=== PATIENT | female | born 1975 | race Two or more races ===

== ENCOUNTER 2019-06-26 07:23 | Day surgery (SDC) | payer OTHER ==
[2019-06-26] MEDS ORDERED: fentaNYL 100 MCG/2 ML VIAL IVP ONE (07:24)
[2019-06-26] MEDS ORDERED: KETOROLAC 30 MG/ML VIAL IVP ONE (07:24)
[2019-06-26] MEDS ORDERED: ONDANSETRON 4 MG/2 ML VIAL IVP ONE (07:24)
[2019-06-26] MEDS ORDERED: DEXAMETHASONE 4 MG/ML VIAL IVP ONE (07:24)
[2019-06-26] MEDS ORDERED: ROCURONIUM 50 MG/5 ML VIAL IVP ONE (07:24)
[2019-06-26] MEDS ORDERED: GLYCOPYRROLATE 1 MG/5 ML VIAL IVP ONE (07:24)
[2019-06-26] MEDS ORDERED: MIDAZOLAM 2 MG/2 ML VIAL IVP ONE (07:24)
[2019-06-26] MEDS ORDERED: PROPOFOL 200 MG/20 ML VIAL IVP ONE (07:24)
[2019-06-26] MEDS ORDERED: LACTATED RINGERS 1,000 ML IV ONE ×2 (07:54→10:15)
--- NOTE | 2019-06-26 08:01 | ANESTHESIA ---
Pre-Anesthesia VS, & Labs - Diagnosis chronic pelvic pain - Procedure diagnostic laparoscopy Vital Signs: Temp Pulse Resp BP Pulse Ox 36.2 C L 71 16 106/75 96 06/26/19 07:39 06/26/19 07:39 06/26/19 07:39 06/26/19 07:39 06/26/19 07:39 Height 5 ft 3.78 in Weight (kg) 77.4 kg - NPO >8 hours Last Fluid Intake: h20 at 0630 - Is Patient ?: Waiver signed Home Medications and Allergies Home Medications: Ambulatory Orders Diclofenac Sodium [Voltaren] 100 gm TP 06/16/19 Ergocalciferol [Vitamin D2] 50,000 unit PO Q7D 06/16/19 Fluticasone [Flonase] 1 sprays [place] DAILY 06/16/19 Loratadine [Claritin] 10 mg PO 06/16/19 Omeprazole 40 mg PO 06/16/19 Zolpidem [Ambien] 5 mg PO HS 06/16/19 Ibuprofen 10/05/14 Diclofenac Sodium [Voltaren] 100 gm TP 06/16/19 Ergocalciferol [Vitamin D2] 50,000 unit PO Q7D 06/16/19 Fluticasone [Flonase] 1 sprays [place]NN DAILY 06/16/19 Loratadine [Claritin] 10 mg PO 06/16/19 Omeprazole 40 mg PO 06/16/19 Zolpidem [Ambien] 5 mg PO HS 06/16/19 Allergies/Adverse Reactions: Allergies Allergy/AdvReac Type Severity Reaction Status Date / Time amoxicillin Allergy Rash Verified 06/16/19 14:23 Anes History & Medical History - Anesthetic History Anesthesia Complications: reports: Post-Operative Nausea/Vomiting - Medical History Cardiovascular: reports: None Pulmonary: reports: None Gastrointestinal: reports: GERD (controlled with medication) Urinary: reports: None Neuro: reports: None Musculoskeletal: reports: None Endocrine/Autoimmune: reports: None Blood Disorders: reports: None Skin: reports: None Smoking Status: Never smoker Psychosocial: reports: No issues indicated - Surgical History General: Cholecystectomy Gynecologic: section, Tubal ligation Exam General: Alert, Oriented x3, Cooperative, No acute distress Dental: WNL Mouth Openin Fingerbreadth Neck Mobility: Normal Mallampati classification: II Thyromental Distance: greater than 6 cm Respiratory: Lungs clear, Normal breath sounds, No respiratory distress, No accessory muscle use Cardiovascular: Regular rate, Normal S1, Normal S2, No murmurs Mental/Cognitive Status: Alert/Oriented X3, Normal for patient Plan Anesthesia Type: General Consent for Procedure(s) Verified and Reviewed: Yes Code Status: Attempt Resuscitation ASA classification: 2-Mild systemic disease Is this case an emergency?: No
[2019-06-26] MEDS ORDERED: SCOPOLAMINE PATCH TOP ONE (08:08)
[2019-06-26] MEDS ORDERED: BUPIVACAINE 0.5% PF 10 ML VIAL ONE (08:29)
[2019-06-26] MEDS ORDERED: SIMETHICONE 40 MG/0.6 ML 30 ML BOTTLE ONE (08:54)
[2019-06-26] MEDS ORDERED: SILVER NITRATE APPLICATOR TOP ONE (08:55)
[2019-06-26] MEDS ORDERED: BUPIVACAINE 0.5% PF 30 ML VIAL SUBQ ONE ×2 (09:35)
[2019-06-26] MEDS ORDERED: HYDROcod/ACETAM 10 MG/325 MG TABLET PO PRN (10:18)
--- NOTE | 2019-06-26 10:22 | OPERATIVE REPORT ---
Operative Report - General Procedure Date: 06/26/19 Planned Procedure: Diagnostic laparoscopy Pre-Op Diagnosis: Chronic pelvic pain Procedure Performed: Diagnostic laparoscopy Lysis of adhesions Fulguration of endometriosis Post Op Diagnosis: Adhesions - Procedure Note Primary Surgeon: Naheed Anesthesia Provider: Jonatan Anesthesia Technique: General ET tube IV Fluids (mL): 1,000 Estimated Blood Loss (mL): 10 Indications: 7-year history of pelvic pain of uncertain etiology Findings: Exam under anesthesia Uterus was of normal size shape and consistency and anteverted. There were no adnexal masses. Operative findings the uterus was anteverted and of normal size and shape. There was a dense adhesive band from the fundus of the uterus to the anterior abdominal wall. There were filmy omental adhesions in the right lower quadrant omentum covered the entire abdomen obscuring abdominal contents and preventing observation of the appendix and liver. There were 3 endometriotic implants in the posterior cul-de-sac. The anterior cul-de-sac and both ovarian fossae were clear. Both tubes and ovaries appeared normal. Complications: None - Other Other Information/Narrative: The patient was taken to the operating room, where general endotracheal anesthesia was administered without difficulty. She was then positioned in the low dorsal lithotomy position with her lower extremities in [place] stirrups. Vagina, perineum, and abdomen were then prepped and draped in a sterile fashion. Procedure Time-Out was then performed. An exam under anesthesia was performed. A sterile bivalve speculum was then inserted into the vagina. The anterior lip of the cervix was grasped with a single-tooth tenaculum, then the cervix was serially dilated until a [place]ka uterine manipulator could be advanced. The speculum was then removed, and attention was turned to the laparoscopy. 0.5% Marcaine was injected infraumbilically, then a 7-mm horizontal skin incision made. A Verres needle was then inserted through the anterior layers of the abdominal wall with saline drop test suggesting intraperitoneal placement. Carbon dioxide gas insufflation was then performed with appropriate opening pressures noted. Once 2 L of gas was instilled, a 0-degree, 5 mm laparoscope was inserted into a 5 mm trocar and passed through the anterior layers of the abdominal wall using Optiview technique. The abdomen was visualized, then a right lower quadrant port was placed, first instilling local anesthetic, then placing the ports under direct visualization with the laparoscope. The patient was placed into Trendelenberg and bowel swept out of the cul-de-sac. The pelvis was visualized with the findings as noted above. The fibrous adhesion from the fundus of the uterus to the anterior abdominal wall was doubly coagulated with the LigaSure and divided. The right lower quadrant adhesions were taken down with the LigaSure. Bovie cautery was utilized to fulgurate the endometriosis lesions. At this point the laparoscopy was deemed complete, and all trocars were removed from the abdomen. The carbon dioxide gas was then allowed to escape. The incisions were then closed with 4-0 Monocryl in a subcuticular fashion followed by Dermabond skin adhesive. The uterine manipulator was removed. At this point the procedure was deemed complete. The patient was then replaced supine, awakened, extubated, and transferred to the PACU in stable condition. There were no complications. Sponge, lap, and needle count were correct x 3. There were no complications.
[2019-06-26] MEDS: fentaNYL 100 MCG/2 ML VIAL ONE ×2 (10:26→10:32)
[2019-06-26] MEDS ORDERED: HYDROcod/ACETAM 10 MG/325 MG TABLET ONE (11:20)
[2019-06-26 11:56] VITALS: BP 121/82
== END 2019-06-26 07:24 | disposition home or self-care (01) ==
LOC: SDS 07:23
PROVIDERS: ATTEND Obstetrics & Gynecology
PROC: 0U5F4ZZ Destruction of Cul-de-sac, Percutaneous Endoscopic Approach (ICD-10-PCS; 2019-06-26)
PROC: 0DNW4ZZ Release Peritoneum, Percutaneous Endoscopic Approach (ICD-10-PCS; principal; 2019-06-26 08:45)
DX: R10.2 Pelvic and perineal pain (principal); N73.6 Female pelvic peritoneal adhesions (postinfective); N80.3 Endometriosis of pelvic peritoneum
CPT/HCPCS: 58662; A9270; J3490; J7120

== ENCOUNTER 2019-08-01 06:11 | Day surgery (SDC) | payer OTHER ==
[2019-08-01] MEDS ORDERED: MIDAZOLAM 2 MG/2 ML VIAL IVP ONE (06:12)
[2019-08-01] MEDS ORDERED: KETOROLAC 30 MG/ML VIAL IVP ONE (06:12)
[2019-08-01] MEDS ORDERED: PROPOFOL 200 MG/20 ML VIAL IVP ONE ×2 (06:12)
[2019-08-01] MEDS ORDERED: ACETAMINOPHEN 1,000 MG/100 ML 100 ML IV ONE (06:12)
[2019-08-01] MEDS ORDERED: fentaNYL 250 MCG/5 ML VIAL IVP ONE (06:12)
[2019-08-01] MEDS ORDERED: ONDANSETRON 4 MG/2 ML VIAL IVP ONE (06:12)
[2019-08-01] MEDS ORDERED: DEXAMETHASONE 4 MG/ML VIAL IVP ONE (06:12)
[2019-08-01] MEDS ORDERED: LACTATED RINGERS 1,000 ML IV ONE (06:35)
[2019-08-01 06:40] LABS: HCG UR QUAL NEGATIVE
--- NOTE | 2019-08-01 07:00 | ANESTHESIA ---
Pre-Anesthesia VS, & Labs - Diagnosis left ankle instability - Procedure left ankle brostrum procedure, peroneal repair Vital Signs: Temp Pulse Resp BP Pulse Ox 36.2 C L 78 16 117/85 H 97 08/01/19 06:36 08/01/19 06:36 08/01/19 06:36 08/01/19 06:36 08/01/19 06:36 Height 5 ft 4 in Weight (kg) 77 kg - Is Patient ?: No Home Medications and Allergies Ibuprofen 10/05/14 Diclofenac Sodium [Voltaren] 100 gm TP 06/16/19 Ergocalciferol [Vitamin D2] 50,000 unit PO Q7D 06/16/19 Fluticasone [Flonase] 1 sprays [place] DAILY 06/16/19 Loratadine [Claritin] 10 mg PO 06/16/19 Omeprazole 40 mg PO 06/16/19 Zolpidem [Ambien] 5 mg PO HS 06/16/19 Allergies/Adverse Reactions: Allergies Allergy/AdvReac Type Severity Reaction Status Date / Time amoxicillin Allergy Rash Verified 06/16/19 14:23 Anes History & Medical History - Anesthetic History Anesthesia Complications: reports: No previous complications Family history of Anesthesia Complications: Denies Family history of Malignant Hyperthermia: Denies - Medical History Cardiovascular: reports: None Pulmonary: reports: None Gastrointestinal: reports: GERD Urinary: reports: None Neuro: reports: None Musculoskeletal: reports: Osteoarthritis Endocrine/Autoimmune: reports: None Blood Disorders: reports: None Skin: reports: None Smoking Status: Never smoker - Surgical History General: Cholecystectomy Gynecologic: section Results - Other Other Results/Comments: HCG negative Exam Mouth Openin Fingerbreadth Mallampati classification: IV Thyromental Distance: 4-6 cm Respiratory: Lungs clear Cardiovascular: Regular rate Plan Anesthesia Type: General Consent for Procedure(s) Verified and Reviewed: Yes Code Status: Attempt Resuscitation ASA classification: 2-Mild systemic disease Is this case an emergency?: No
[2019-08-01] MEDS ORDERED: SCOPOLAMINE PATCH TOP ONE (07:19)
[2019-08-01] MEDS ORDERED: CLINDAMYCIN 600 MG/50 ML 50 ML IV ONE (07:28)
[2019-08-01] MEDS ORDERED: BUPIVACAINE 0.25% PF 30 ML VIAL ONE (07:31)
[2019-08-01] MEDS ORDERED: BUPIVACAINE 0.25% PF 30 ML VIAL SUBQ ONE ×2 (08:07)
[2019-08-01] MEDS ORDERED: oxyCODONE 5 MG TABLET PO PRN (09:35)
[2019-08-01] MEDS ORDERED: ONDANSETRON 4 MG/2 ML VIAL IVP PRN (09:35)
[2019-08-01] MEDS ORDERED: fentaNYL 100 MCG/2 ML VIAL ONE (09:40)
[2019-08-01] MEDS ORDERED: HYDROmorphone 0.5 MG/0.5 ML SYRINGE ONE (09:40)
--- NOTE | 2019-08-01 09:49 | OPERATIVE REPORT ---
Operative Report - Other Other Information/Narrative: Date of Surgery: 01 August 2019 Pre-Op Diagnosis: Left ankle instability. Symptomatic peroneal tendon disease Procedure: Left ankle lateral ligament repair. Peroneal tendon debridement Postop Diagnosis: Same Primary Surgeon: Adria Han Secondary Surgeon: James Patterson Complications: None Tourniquet Time: 59 minutes EBL: 1 cc Implants: Arthrex fibertak x 2 Postoperative Protocol: Same day surgery discharge Splint nonweightbearing until 2 weeks At 2 weeks the splint will be removed, sutures will be removed, and she will be placed in a boot or a cast. At 6 weeks he will be allowed to start walking with a boot on At 12 weeks he can wean from the boot and advance activities as tolerated Indication For Surgery: 43-year-old female with chronic left ankle instability and pain. The pain is located over the peroneal tendons and on MRI she had an accessory muscle. The instability did not respond to bracing and physical therapy. She desired operative management. The risks, benefits, and alternatives were discussed. Risks include pain, bleeding, infection, damage to nearby structures, numbness, lack of symptom relief, implant complications, nonunion, need for further surgery, DVT, PE, stroke, and . Written consent was obtained. Procedure in Detail: The patient was met in the pre-operative hold area on the day of the procedure. The operative extremity was signed and questions were answered. The patient was brought to the operating room and a general anesthetic was administered. Supine position was used and all bony prominences were padded. Standard prepping and draping was performed. A time out confirmed patient identification, laterality, procedure, allergies, antibiotics, and images. An Esmarch was used to exsanguinate the limb and the tourniquet was elevated to 250 mmHg. A 6 cm incision was made over the lateral ankle coursing in line with the fibers of the ATFL. Incision was carried down to the level of the retinaculum. Full- thickness skin flaps were then elevated anteriorly as well as posteriorly. The peroneal tendon sheath was identified and opened sharply. I took care to not take down the retinaculum distally. I bluntly dissected between the peroneus brevis and peroneus longus and performed a Amanda synovectomy of both tendons. Both were pulled out of the wound for inspection. There were no tears in the peroneus longus or brevis tendons. An accessory peroneus quartus was seen deep within the peroneal tendon sheath. This was sharply dissected off of the surrounding tissues and excised. The wound was irrigated. I then turned my attention to the lateral ligaments. The capsule anterior and inferior to the fibular tip was opened 2 mm off of the fibula leaving a small cuff. A blunt instrument was placed into the joint along the front end of the fibula and the capsule was opened. The peroneal tendons were identifed and protected. The fibula cuff was then elevated subperiosteally. The joint was inspected and no cartilage lesions were appreciated. [place]'s ligament was excised with a narrow rondure. The anterior distal fibula bone was then prepped, creating a small trough using a rongeur as well as a curet. Two anchors were then inserted, the first at the CFL footprint and the second at the ATFL footprint. The limb was elevated from the table via the suture anchors to ensure secure fixation. The CFL suture anchor was then passed distally through the CFL and capsule and pulled taut. The ATFL suture was then passed in similar fashion through the ATFL tissue and capsule in the anatomic location. All limbs were then passed approximately from deep to superficial through the periosteal layer on the fibula. The ankle was placed in neutral dorsiflexion and slight hindfoot valgus and the sutures were tied. The sutures were then passed distally through the extensor retinaculum to perform the Sage modification and were again tied. This restored stability nicely. The sutures were cut. The ankle was then tested and noted to be stable to anterior drawer te sting as well as to talar tilt testing. The wound was then irrigated copiously. Closure was then conducted using 0 Vicryl in a [id number] fashion for the deep tissue layer followed 2-0 vicryl in buried interrupted fashion for the deep dermal layer. The skin was then closed using 3-0 nylon in a mattress suture fashion. 10 mL's of 0.25% Marcaine was injected into the periwound soft tissue . The wounds were then dressed with Xeroform, plain 4x4 gauze, and wrapped in sterile Webril. They were then placed in a L and U splint at neutral dorsiflexion and approximately 5 degrees of eversion, awakened from general anesthesia without complication, brought to the Postanesthesia Care Unit for further Recovery.
[2019-08-01] MEDS ORDERED: oxyCODONE 5 MG TABLET ONE (10:20)
[2019-08-01 10:39] VITALS: BP 114/74
== END 2019-08-01 06:12 | disposition home or self-care (01) ==
LOC: SDS 06:11
PROVIDERS: ATTEND Orthopaedic Surgery
PROC: 0MQR0ZZ Repair Left Ankle Bursa and Ligament, Open Approach (ICD-10-PCS; principal; 2019-08-01 07:30)
DX: M25.372 Other instability, left ankle (principal); K21.9 Gastro-esophageal reflux disease without esophagitis; Z79.82 Long term (current) use of aspirin
CPT/HCPCS: 27698; 81025; A9270; J0131; J1170; J3010; J3490; J7120